=== PATIENT | female | born 1955 | race Caucasian/White ===

== ENCOUNTER → 2020-06-14 | Outpatient (CLI) | payer BC ==
[~2020-06-14] MED LIST: ESTR1TAB24 PO; IBUP-1780 PO; MAGN250T2 PO; MEDR2.5T6 PO; POTA99TA21 PO
== END ==
LOC: LABNPT 08:52
PROVIDERS: ATTEND Obstetrics & Gynecology
DX: Z01.89 Encounter for other specified special examinations (principal); Z20.828 Contact with and (suspected) exposure to other viral communicable diseases
CPT/HCPCS: 87635

== ENCOUNTER 2020-06-15 10:15 | Outpatient (RCR) | payer BC ==
[~2020-06-15] VITALS: Ht 166.4 cm; Wt 117.3 kg
[2020-06-15] MEDS ORDERED: ESTR1TAB24 PO (11:15)
[2020-06-15] MEDS ORDERED: MEDR2.5T6 PO (11:15)
[2020-06-15] MEDS ORDERED: MAGN250T2 PO (11:15)
[2020-06-15] MEDS ORDERED: POTA99TA21 PO (11:15)
[2020-06-16] MEDS ORDERED: IBUP-1780 PO (16:40)
== END 2020-06-15 11:22 | disposition home or self-care (01) ==
LOC: PREOP 10:15
PROVIDERS: ATTEND Obstetrics & Gynecology
DX: Z01.818 Encounter for other preprocedural examination (principal); N95.0 Postmenopausal bleeding

== ENCOUNTER 2020-06-16 11:30 | Day surgery (SDC) | payer BC ==
[2020-06-16] VITALS (12 sets, daily range): BP systolic 128–162; BP diastolic 63–88
[~2020-06-16] VITALS: Ht 166.4 cm; Wt 117.3 kg
[~2020-06-16 11:30] MED LIST changes: -IBUP-1780 PO
[2020-06-16] MEDS ORDERED: WATER (STERILE) FOR INJECTION 10 ML ONE (12:24)
[2020-06-16] MEDS ORDERED: ceFAZolin INJECTION 1,000 MG ONE (12:24)
[2020-06-16] MEDS ORDERED: ceFAZolin INJECTION 1,000 MG in WATER (STERILE) FOR INJECTION 10 ML IV ONE (12:30)
[2020-06-16] MEDS ORDERED: LACTATED RINGERS 1,000 ML IV PRN (12:30)
[2020-06-16 12:49] LABS: BASOPHILS # (AUTO) 0.1 10^3/uL (0.0-0.1); BASOPHILS % (AUTO) 1 % (0-10); EOSINOPHILS # (AUTO) 0.1 10^3/uL (0.0-0.3); EOSINOPHILS % (AUTO) 1 % (0-10); HEMATOCRIT 48 % (35-52); HEMOGLOBIN 15.3 g/dL (11.5-16.0); LYMPHOCYTES # (AUTO) 2.4 10^3/uL (1.0-4.0); LYMPHOCYTES % (AUTO) 34 % (12-44); MEAN CORPUSCULAR HEMOGLOBIN 31 pg (25-34); MEAN CORPUSCULAR HGB CONC 32 g/dL (32-36); MEAN CORPUSCULAR VOLUME 98 fL (80-99); MEAN PLATELET VOLUME 10.9 fL (9.0-12.2); MONOCYTES # (AUTO) 0.5 10^3/uL (0.0-1.0); MONOCYTES % (AUTO) 7 % (0-12); NEUTROPHILS % (AUTO) 57 % (42-75); PLATELET COUNT 186 10^3/uL (130-400); WHITE BLOOD COUNT 7.1 10^3/uL (4.3-11.0)
[2020-06-16] MEDS ORDERED: proPOfol 200 MG/20 ML (DIPRIVAN) VIAL IV ONE (12:57)
[2020-06-16] MEDS ORDERED: MIDAZOLAM 2 MG/2 ML (VERSED) VIAL ONE (12:57)
[2020-06-16] MEDS ORDERED: LIDOCAINE PF 2% 5 ML (XYLOCAINE) VIAL ONE (12:57)
[2020-06-16] MEDS ORDERED: fentaNYL INJECTION 100 MCG/2 ML AMP ONE (12:57)
[2020-06-16] MEDS ORDERED: ONDANSETRON 4 MG/2 ML (SDV) Z0FRAN ONE (12:57)
[2020-06-16] MEDS ORDERED: SEVOFLURANE (ULTANE) 15 ML INHAL SOLN ONE (12:58)
[2020-06-16] MEDS ORDERED: ONDANSETRON 4 MG/2 ML (SDV) Z0FRAN IVP PRN (16:15)
--- NOTE | 2020-06-16 16:15 | Anesthesia-General Post-Op ---
General Patient Condition Mental Status/LOC: Same as Preop Cardiovascular: Satisfactory Nausea/Vomiting: Absent Respiratory: Satisfactory Pain: Controlled Complications: Absent Post Op Complications Complications None Follow Up Care/Instructions Patient Instructions None needed. Anesthesia/Patient Condition Patient Condition Patient is doing well, no complaints, stable vital signs, no apparent adverse anesthesia problems. No complications reported per nursing. JAMES KATZ CRNA Jun 16, 2020 16:15
[2020-06-16] MEDS ORDERED: morphine INJ 10 MG/ML 1ML (SYR OR VIAL) ONE (16:24)
[2020-06-16] MEDS: morphine INJ 10 MG/ML 1ML (SYR OR VIAL) IVP ONE (16:28)
--- NOTE | 2020-06-16 16:29 | Progress Note-Pre Operative ---
Pre-Operative Progress Note H&P Reviewed The H&P was reviewed, patient examined and no changes noted. Date Seen by Provider: Jun 16, 2020 Time Seen by Provider: 16: Date H&P Reviewed: Jun 16, 2020 Time H&P Reviewed: 16: Pre-Operative Diagnosis: PMB, INTRAUTERINE MASS ERICK FOX MD Jun 16, 2020 16:29
--- NOTE | 2020-06-16 16:32 | Progress Note-Post Operative ---
Post-Operative Progess Note Surgeon (s)/Geophysical Drafter (s) Surgeon ERICK FOX MD Geophysical Drafter: NONE Pre-Operative Diagnosis PMB, INTRAUTERINE MASS Post-Operative Diagnosis SAMEWith pathology pending and with intraoperative findings of a almost complete uterine septum Procedure & Operative Findings Date of Procedure 06/16/20 Procedure Performed/Findings Hysteroscopy with directed biopsy and D&C Anesthesia Type GETA Estimated Blood Loss Estimated blood loss (mL): Minimal Specimens/Packing Specimens Removed Endometrial polypoid mass and endometrial curettings ERICK FOX MD Jun 16, 2020 16:32
[2020-06-16] MEDS ORDERED: IBUP-1780 PO (16:40)
--- NOTE | 2020-06-16 16:40 | Discharge Inst-Surgical ---
Discharge Inst-Surgical Depart Medication/Instructions New, Converted or Re-Newed RX: RX on Chart Consults/Follow Up Patient Instructions: As directed Orders & Referrals Follow Up Appt: Call to make follow up appt. for patient in 2 weeks. Activity: Rest for 24 hours, than as tolerated. Please call in RX to patient pharmacy. Diet: As tolerated- shower or tub bathe as desired. No driving for 24 hours, no alcoholic beverages for 24 hours, and nothing per vagina (no tampons, douching, or intercoarse) for 2 weeks. Patient to return to the clinic as soon as possible for: Temperature greater than 101F, Severe Pain, Foul discharge from incision or vagina, Excessive Bleeding (more than a period). Activity Activity as Tolerated: No Diet Discharge Diet: No Restrictions ERICK FOX MD Jun 16, 2020 16:40
[2020-06-16] MEDS ORDERED: ACETAMINOPHEN 500 MG TAB (TYLENOL) ONE (17:51)
[2020-06-16] MEDS ORDERED: ACETAMINOPHEN 500 MG TAB (TYLENOL) PO ONE (18:00)
--- NOTE | 2020-06-17 03:30 | OPERATIVE REPORT ---
DATE OF SERVICE: 06/16/2020 PREOPERATIVE DIAGNOSES: Postmenopausal bleeding and intrauterine mass. POSTOPERATIVE DIAGNOSES: Postmenopausal bleeding and intrauterine mass with uterine septum. OPERATIVE PROCEDURE: Hysteroscopy with directed biopsy and D and C. OPERATIVE DESCRIPTION: With the patient in the supine position under satisfactory general anesthesia, she was re[facility] and prepped and draped in the usual fashion for vaginal surgery. Weighted speculum placed in posterior fornix of vagina, cervix was exposed and grasped anteriorly with single tooth tenaculum. The uterus was sounded to 11 cm with uterine sound. The cervix was then serially dilated with Jordin dilators to accommodate a hysteroscope, which was placed and then using LR as a distending medium, the endometrial cavity was examined. There was an almost complete uterine septum extending 80% down the uterine cavity. The hysteroscope could be advanced in each horn of the uterine cavity and the tubal ostia identified on each side appeared normal. On the patient's left side, there was an approximately 1 cm polypoid mass emanating from the posterior surface of uterus. This was grasped with biopsy forceps across its base and then removed intact. That portion of tissue was sent to pathology for permanent section. The endometrial cavity was then sharply curettaged in each horn and that tissue sent collectively to pathology for permanent section as endometrial curettings. The hysteroscope was reintroduced. There was no remaining abnormal tissue polypoid tissue, particularly that in the left uterine cavity portion was completely removed. There was no significant bleeding. The hysteroscope as well as the tenaculum were removed. There was no bleeding from the cervical os and no bleeding from the puncture sites on the tenaculum. At this point, the procedure was complete and terminated. Sponge and needle counts were correct. Estimated blood loss was minimal. A total of 700 mL of LR was used as distending medium and almost that same amount was recovered. The patient tolerated the procedure well and was uneventfully awakened from her general anesthesia and transferred to recovery room in stable condition with plans for discharge home PAR. Job ID: [id number] DocumentID: [id number] Dictated Date: 06/16/2020 22:27:42 Wood Block Artist Date: 06/17/2020 03:29:37 Dictated By: ERICK FOX MD
== END 2020-06-16 18:33 ==
LOC: SDC 11:30
PROVIDERS: ATTEND Obstetrics & Gynecology
DX: N95.0 Postmenopausal bleeding (principal); Q51.28 Other and unspecified doubling of uterus; N84.0 Polyp of corpus uteri; M19.90 Unspecified osteoarthritis, unspecified site; N95.1 Menopausal and female climacteric states; E66.01 Morbid (severe) obesity due to excess calories; Z68.41 Body mass index [BMI] 40.0-44.9, adult; Z79.899 Other long term (current) drug therapy; Z88.2 Allergy status to sulfonamides; Z90.49 Acquired absence of other specified parts of digestive tract; Z79.890 Hormone replacement therapy; Z83.3 Family history of diabetes mellitus
CPT/HCPCS: 36415; 85025; 87081

== ENCOUNTER 2021-04-13 06:34 | Outpatient (CLI) | payer BC ==
[~2021-04-13] VITALS: Ht 165.1 cm; Wt 120.8 kg
[~2021-04-13 06:34] MED LIST changes: +IBUP-1780 PO
[2021-04-16] MEDS ORDERED: POTA10CA43 PO (09:12)
[2021-04-16] MEDS ORDERED: MECO10005 PO (09:12)
[2021-04-16] MEDS ORDERED: FURO20TA4 PO (09:12)
[2021-04-16] MEDS ORDERED: CHOL100048 PO (09:12)
== END 2021-04-16 09:16 | disposition home or self-care (01) ==
LOC: PREOP 06:34
PROVIDERS: ATTEND Obstetrics & Gynecology
DX: Z01.818 Encounter for other preprocedural examination (principal)

== ENCOUNTER 2021-04-20 07:54 | Day surgery (SDC) | payer BC ==
[2021-04-20] VITALS (10 sets, daily range): BP systolic 105–138; BP diastolic 49–73
[~2021-04-20] VITALS: Ht 165.1 cm; Wt 120.8 kg
[~2021-04-20 07:54] MED LIST changes: +CHOL100048 PO; +FURO20TA4 PO; +MECO10005 PO; +POTA10CA43 PO; +ceFAZolin INJECTION 1,000 MG in WATER (STERILE) FOR INJECTION 10 ML IV ONE
[2021-04-20] MEDS ORDERED: WATER (STERILE) FOR INJECTION 10 ML ONE (08:08)
[2021-04-20] MEDS ORDERED: ceFAZolin INJECTION 1,000 MG ONE (08:08)
[2021-04-20] MEDS: LACTATED RINGERS 1,000 ML IV PRN ×2 (08:53→12:12)
[2021-04-20 09:09] LABS: BASOPHILS # (AUTO) 0.1 10^3/uL (0.0-0.1); BASOPHILS % (AUTO) 1 % (0-10); EOSINOPHILS # (AUTO) 0.2 10^3/uL (0.0-0.3); EOSINOPHILS % (AUTO) 2 % (0-10); HEMATOCRIT 45 % (35-52); LYMPHOCYTES # (AUTO) 2.7 10^3/uL (1.0-4.0); LYMPHOCYTES % (AUTO) 33 % (12-44); MEAN CORPUSCULAR HEMOGLOBIN 32 pg (25-34); MEAN CORPUSCULAR HGB CONC 34 g/dL (32-36); MEAN CORPUSCULAR VOLUME 96 fL (80-99); MEAN PLATELET VOLUME 10.9 fL (9.0-12.2); MONOCYTES # (AUTO) 0.7 10^3/uL (0.0-1.0); MONOCYTES % (AUTO) 9 % (0-12); NEUTROPHILS # (AUTO) 4.5 10^3/uL (1.8-7.8); NEUTROPHILS % (AUTO) 55 % (42-75); PLATELET COUNT 211 10^3/uL (130-400); WHITE BLOOD COUNT 8.1 10^3/uL (4.3-11.0)
[2021-04-20] MEDS ORDERED: LIDOCAINE/EPI 1%-1:100,000 (XYLOCAINE) 20ML ONE (09:18)
[2021-04-20] MEDS ORDERED: ONDANSETRON 4 MG/2 ML (SDV) Z0FRAN ONE ×2 (09:24→18:31)
[2021-04-20] MEDS ORDERED: fentaNYL INJ 100 MCG/2 ML AMP ONE (09:24)
[2021-04-20] MEDS ORDERED: MIDAZOLAM 2 MG/2 ML (VERSED) VIAL ONE (09:24)
[2021-04-20] MEDS ORDERED: proPOfol 200 MG/20 ML (DIPRIVAN) VIAL IV ONE (09:24)
[2021-04-20] MEDS ORDERED: ROCURONIUM 10 MG/ML 5 ML SYRINGE IV ONE (09:24)
[2021-04-20] MEDS ORDERED: SEVOFLURANE (ULTANE) 15 ML INHAL SOLN ONE ×2 (09:24→10:06)
[2021-04-20] MEDS ORDERED: LIDOCAINE PF 2% 5 ML (XYLOCAINE) VIAL ONE (09:24)
--- NOTE | 2021-04-20 09:43 | Progress Note-Pre Operative ---
Pre-Operative Progress Note H&P Reviewed The H&P was reviewed, patient examined and no changes noted. Date Seen by Provider: Apr 20, 2021 Time Seen by Provider: :43 Date H&P Reviewed: Apr 20, 2021 Time H&P Reviewed: :43 Pre-Operative Diagnosis: Postmenopausal bleeding/intrauterine mass ERICK FOX MD Apr 20, 2021 09:43
--- NOTE | 2021-04-20 09:44 | Progress Note-Post Operative ---
Post-Operative Progess Note Surgeon (s)/Silk Trimmer (s) Surgeon ERICK FOX MD Silk Trimmer: Jessee Ball Pre-Operative Diagnosis Postmenopausal bleeding/intrauterine mass Post-Operative Diagnosis Same with pathology pending Procedure & Operative Findings Date of Procedure 04/20/21 Procedure Performed/Findings Total laparoscopic hysterectomy with bilateral salpingoovary Anesthesia Type General Estimated Blood Loss Estimated blood loss (mL): min Specimens/Packing Specimens Removed Uterus fallopian tubes and ovaries ERICK FOX MD Apr 20, 2021 09:44
[2021-04-20] MEDS ORDERED: PROMETHAZINE INJ 25 MG/ML (PHENERGAN) AMP IM PRN (09:45)
[2021-04-20] MEDS ORDERED: ESTROGENS CONJ INJECTION 25 MG in WATER (STERILE) FOR INJECTION 5 ML IV ONE ×11 (09:45→18:45)
[2021-04-20] MEDS ORDERED: D5 LR IV SOLUTION 1,000 ML IV SCH ×6 (09:45→18:45)
[2021-04-20] MEDS ORDERED: oxyCODONE/APAP 5/325MG (PERCOCET 5) TABLET PO PRN (09:45)
[2021-04-20] MEDS ORDERED: ONDANSETRON 4 MG/2 ML (SDV) Z0FRAN IVP PRN ×7 (09:45→18:45)
[2021-04-20] MEDS ORDERED: fentaNYL INJ 100 MCG/2 ML AMP IVP PRN ×6 (09:45→18:45)
[2021-04-20] MEDS ORDERED: DOCU-143 PO (09:47)
[2021-04-20] MEDS ORDERED: OXYC1TAB87 PO (09:47)
[2021-04-20] MEDS ORDERED: IBUP-1780 PO (09:47)
--- NOTE | 2021-04-20 09:49 | Discharge Inst-Surgical ---
Discharge Inst-Surgical Depart Medication/Instructions New, Converted or Re-Newed RX: Transmitted to Pharmacy Consults/Follow Up Patient Instructions: As directed Orders & Referrals Follow Up Appt: Return to clinic on Friday, April 23, 2021 at 9:30 AM for staple removal Call to make follow up appt. for patient For postoperative check before May 11, 2021 Activity: Rest for 24 hours, than as tolerated. Wound Care: May remove Band-Aid tomorrow. Replace as desired. Keep incisions clean and dry. Wash daily with soap and water. Diet: As tolerated may shower or tub bathe as desired. No driving for 24 hours, no alcoholic beverages for 24 hours, and nothing per vagina (no tampons, douching, or intercourse) for 8 weeks. Patient to return to the clinic as soon as possible for: Temperature greater than 101F, Severe Pain, Foul discharge from incision or vagina, Excessive Bleeding (more than a period). Activity Activity as Tolerated: No Diet Discharge Diet: No Restrictions ERICK FOX MD Apr 20, 2021 09:48
[2021-04-20] MEDS ORDERED: morphine INJ 10 MG/ML 1ML (SYR OR VIAL) ONE (10:54)
[2021-04-20] MEDS ORDERED: KETOROLAC 30 MG/ML VIAL ONE (11:11)
[2021-04-20] MEDS: KETOROLAC 30 MG/ML VIAL IVP SCH ×2 (12:10→19:53)
[2021-04-20] MEDS ORDERED: MEPERIDINE (DEMEROL) INJ 50 MG/ML IVP ONE (12:15)
[2021-04-20] MEDS ORDERED: morphine INJ 10 MG/ML 1ML (SYR OR VIAL) IVP ONE (12:15)
[2021-04-20] MEDS ORDERED: fentaNYL INJ 100 MCG/2 ML AMP IVP ONE (12:15)
--- NOTE | 2021-04-20 17:29 | OPERATIVE REPORT ---
DATE OF SERVICE: 04/20/2021 PREOPERATIVE DIAGNOSES: Postmenopausal bleeding and intrauterine polyp. 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 OPERATIVE PROCEDURES: Total laparoscopic hysterectomy with bilateral salpingo-oophorectomy. OPERATIVE DESCRIPTION: With the patient in the supine position under satisfactory general anesthesia, she was repositioned in the dorsal lithotomy position in the [facility] and prepped and draped in the usual fashion for abdominal and vaginal surgery. A speculum was placed in the vagina. The introitus was too small to accommodate a weighted speculum. The uterus was well supported, was large, bulky and high in the pelvis. The cervix was grasped with some difficulty. The uterus was then sounded to 13 cm with uterine sound. The cervix was then serially dilated with Jordin dilators to accommodate a Edna II manipulator, which was placed again with some difficulty secondary to the narrow caliber of the vagina and the high nature of the cervix. The instrument was placed using a 6 mm x 8 cm uterine probe and a 25 mm colpotomy ring. Sutures of #1 Vicryl were placed with some difficulty in the lateral fornices of the vaginal apex and attached in the cervix to the manipulator. Tovar catheter was placed in the urinary bladder. Tenaculum and speculum were removed. The patient was brought in low dorsal lithotomy position. The patient was fairly rotund. Veress needle was placed through the base of the umbilicus into the abdominal cavity and correct placement was confirmed with the water drop test. The abdomen was insufflated with 2.4 liters of carbon dioxide. Carbon dioxide could be aspirated at two of the three intended port sites. The midline port site, I could not aspirate carbon dioxide in order to avoid issues with internal organs. A decision was made to place a 5 mm port in the left upper quadrant at Mcdaniels's point. With that guide in place, then the abdominal wall could be examined and eliminated and 8 mm ports were placed 8 cm lateral to the umbilicus and a level just above the umbilicus, the 12 mm port was placed in the midline 10 cm above the umbilicus. All of these were placed under direct vision. The patient was placed in a Trendelenburg allowing the bowel spill out of the pelvis. The operative column was advanced on the patient, docked and then operative instrument placed in right and left lateral ports and I retired to the da Michael console. At the console, using the vessel sealer on the right and a bipolar fenestrated grasper on the left, the pelvis was first examined. The ovaries were somewhat difficult to isolate because of the wide nature of this triangular shaped uterus, almost a complete bicornuate uterus in appearance. The ovaries appeared normal. There was evidence of tubal sterilization. The patient had a and there was extensive scar tissue on the lower uterine segment at the level of the bladder flap. The appendix was identified. It was a normal vermiform appendix. The uterus was elevated as much as was possible and that actually was fairly minimal due to the size and nature of her uterus and the pelvis and her anatomy. The right fallopian tube and ovary were grasped and elevated. The IP ligament was clamped, cauterized and divided. This was continued stepwise across the mesovarium, across the round ligament, across the broad ligaments and down onto the cardinal ligament. The same procedure was performed on the left. Again, all of this was done with some difficulty and with care and caution and meticulous attention to exposure. Eventually, the adnexa were freed and the cardinal ligaments on both sides had been approached. The anterior lower uterine segment peritoneum was then divided with monopolar scissors. The incision was made after first dissecting the bladder well down off the lower uterine segment and then opening the vaginal wall on top of the colpotomy ring. That incision was continued circumferentially. Again, this took a fair degree of manipulation and repositioning instruments, changing instruments at time, using the monopolar ivy times used in the vessel sealer. Eventually, the entire colpotomy ring was exposed. The uterus being large and the vaginal caliber and introitus being small, the uterus was removed with some degree of difficulty and clamping and grasping the cervix with a tenaculum and advancing that gradually as the uterus was brought down into the vagina until the entire corpus was brought into the vaginal vault, which was then removed. I returned to the console and closed the vaginal cuff in the usual manner with a V-Loc barbed suture starting at the right angle and continuing all the way across to the left angle. Hemostasis was complete. Good reapproximation was evident. Both ureters could be seen with a lot of difficulty. Decision was made for cystoscopy to ensure ureteral efflux bilaterally. With the procedure complete, the operative instruments and ports were removed. The abdomen was evacuated of the insufflating gas in the process of removing the ports. The skin incisions were stapled. The fascia at the supraumbilical incision was closed with [id number] suture of 2-0 Vicryl. On exam in the vagina, there was a 2 cm laceration in the posterior vaginal wall, likely due to the narrow vagina and the manipulating instruments were used. This was closed with a [id number] suture of 2-0 Vicryl effecting complete hemostasis. Cystoscopy was performed finding a free efflux from both ureteral orifices. At this point, the procedure was complete and terminated. Operative instruments had all been removed. The sponge and needle counts were correct. Blood loss was minimal. The patient tolerated the procedure well and was uneventfully awakened from her general anesthesia and transferred to the recovery room in a stable condition. Job ID: [id number] DocumentID: [id number] Dictated Date: 04/20/2021 12:08:03 Machine Records Units Supervisor Date: 04/20/2021 17:29:17 Dictated By: ERICK FOX MD
[2021-04-20] MEDS: ONDANSETRON 4 MG/2 ML (SDV) Z0FRAN IVP PRN ×2 (18:36→19:53)
[2021-04-20] MEDS ORDERED: ACHD5005 PO (18:40)
[2021-04-20] MEDS ORDERED: ESTR1TAB24 PO (18:40)
[2021-04-20] MEDS ORDERED: HYDROcodone/APAP 5 MG/325 MG (LORTAB) TAB PO PRN ×4 (18:45)
[2021-04-20] MEDS ORDERED: ONDANSETRON 4 MG/2 ML (SDV) Z0FRAN IV PRN ×5 (18:45)
[2021-04-20] MEDS ORDERED: KETOROLAC 30 MG/ML VIAL IVP SCH ×5 (18:45)
[2021-04-20] MEDS ORDERED: BENZOCAINE/MENTHOL (DERMOPLAST) 56 ML CAN TP PRN ×5 (18:45)
[2021-04-20] MEDS ORDERED: SIMETHICONE 80 MG (MYLICON) CHEW PO SCH (21:00)
[2021-04-20] MEDS ORDERED: DOCUSATE SODIUM 100 MG (COLACE) CAP PO SCH ×5 (21:00)
[2021-04-20] MEDS: DOCUSATE SODIUM 100 MG (COLACE) CAP PO SCH (21:00)
[2021-04-21 00:24] VITALS: BP 120/57
[2021-04-21] MEDS: KETOROLAC 30 MG/ML VIAL IVP SCH (01:37)
[2021-04-21] MEDS: HYDROcodone/APAP 5 MG/325 MG (LORTAB) TAB PO PRN ×2 (01:58→07:38)
[2021-04-21 03:25] VITALS: BP 139/65
[2021-04-21 07:40] VITALS: BP 141/63
[2021-04-21] MEDS: DOCUSATE SODIUM 100 MG (COLACE) CAP PO SCH (08:31)
[2021-04-21] MEDS ORDERED: ESTRADIOL 1 MG TAB (ESTRACE) PO SCH (09:00)
[2021-04-21] MEDS ORDERED: DOCUSATE SODIUM 100 MG (COLACE) CAP PO SCH ×6 (09:00)
[2021-04-21] MEDS ORDERED: IBUPROFEN 800 MG (MOTRIN) TAB PO ONE (09:45)
--- NOTE | 2021-04-21 09:46 | Anesthesia-General Post-Op ---
General Patient Condition Mental Status/LOC: Same as Preop Cardiovascular: Satisfactory Nausea/Vomiting: Absent Respiratory: Satisfactory Pain: Controlled Complications: Absent Post Op Complications Complications None Follow Up Care/Instructions Patient Instructions None needed. Anesthesia/Patient Condition Patient Condition Patient is doing well, no complaints, stable vital signs, no apparent adverse anesthesia problems. No complications reported per nursing. D/C home per [facility] Criteria: Yes DORA HERRERA CRNA Apr 21, 2021 09:46
[2021-04-21] MEDS ORDERED: IBUPROFEN 800 MG (MOTRIN) TAB PO SCH ×6 (10:00)
== END 2021-04-21 10:30 | disposition home or self-care (01) ==
LOC: SDC 07:54 → WS 12:55 → SDC 04-21 10:30
PROVIDERS: ATTEND Obstetrics & Gynecology
DX: D25.1 Intramural leiomyoma of uterus (principal); Q51.3 Bicornate uterus; N80.0 Endometriosis of uterus; N83.292 Other ovarian cyst, left side; N83.8 Other noninflammatory disorders of ovary, fallopian tube and broad ligament; E66.9 Obesity, unspecified; Z68.41 Body mass index [BMI] 40.0-44.9, adult; Z79.899 Other long term (current) drug therapy
CPT/HCPCS: 36415; 85025; 87081; 94664

== ENCOUNTER → 2022-06-19 | Outpatient (CLI) | payer MEDICARE ==
[~2022-06-19] MED LIST changes: +ACHD5005 PO; +DOCU-143 PO; -MAGN250T2 PO; +MAGN250T31 PO; +OXYC1TAB87 PO; -POTA99TA21 PO; +POTA99TA26 PO; -ceFAZolin INJECTION 1,000 MG in WATER (STERILE) FOR INJECTION 10 ML IV ONE
--- NOTE | 2022-06-19 21:01 | Diagnostic Imaging Report ---
INDICATION: Palpable lump in right breast. FINDINGS: Sonographic interrogation of the outer right breast was performed, from 7-9 o'clock location. No sonographic abnormality is seen. No solid or cystic mass is detected. IMPRESSION: No sonographic abnormality is detected. ACR BI-RADS Category 1: Negative. Result letter will be mailed to the patient. Note: At least 10% of breast cancer is not imaged by mammography. Dictated by: Dictated on workstation # [id number]
--- NOTE | 2022-06-19 21:25 | Diagnostic Imaging Report ---
INDICATION: Palpable lump in the outer right breast. COMPARISON: Correlation is made with prior mammogram from 10/26/2018. EXAMINATION: 2D and 3D bilateral diagnostic mammography was performed with CAD. The current study was also evaluated with a Computer Aided Detection (CAD) system. FINDINGS: Both breasts are heterogeneously dense, limiting the sensitivity of mammography. No mass or malignant-appearing microcalcifications are seen. Axillae are unremarkable. IMPRESSION: No mammographic features suspicious for malignancy are identified. Even so, sonographic interrogation of the area of palpable abnormality in the outer right breast is recommended and will be performed today. ACR BI-RADS Category 0: Incomplete. (Needs additional imaging evaluation). Result letter will be mailed to the patient. Note: At least 10% of breast cancer is not imaged by mammography. Dictated by: Dictated on workstation # [id number]
== END ==
LOC: RAD 14:02
PROVIDERS: ATTEND Obstetrics & Gynecology
DX: N60.11 Diffuse cystic mastopathy of right breast (principal)
CPT/HCPCS: 76642; 77066; G0279; 77062